=== PATIENT | male | born 1980 | race Caucasian/White ===

== ENCOUNTER 2021-11-10 23:32 | Emergency (ER) | payer OTHER, SELFPAY ==
[2021-11-10 23:35] VITALS: BP 172/106; PULSE 58; RESP 16; TEMP 36.5; O2SAT 98; BMI 32.5
--- NOTE | 2021-11-10 23:52 | EDS_ITS ---
HPI History of Present Illness Chief Complaint: Abscess Informant: patient Onset/Context/Timing Onset: Days Context: Gradual Onset Timing: Continuous Current Severity: Mild Maximum Severity: Mild Narrative Narrative: 41-year-old male no sniffing past medical history. Has a abscess on his right posterior neck. This developed over the last week. He saw his primary care physician last week and started him on Bactrim but it has only gotten worse. He also has appointment to be seen by general surgeon in the next week or so to have this drained. He denies any fever chills or any constitutional symptoms. No prior history. Prior similar symptoms: No Recent Illness/Hospitalization: No PFSH PFSH Medical History no medical history no medical history Allergy/AdvReac Type Severity Reaction Status Date / Time No Known Allergies Allergy Verified 11/10/21 23:36 ROS ROS ED ROS Narrative Denies recent illness. Review of Systems ROS Unobtainable: Denies due to encephalopathy Constitutional Constitutional ED: Denies chills or fever(s) Eyes Eyes: Denies change in vision ENT ENT ED: Denies ear pain Cardiovascular Cardiovascular: Denies chest pain Respiratory/Chest Respiratory/Chest: Denies dyspnea Gastrointestinal Gastrointestinal: Denies abdominal pain, diarrhea, nausea or vomiting Genitourinary Genitourinary ED: Denies dysuria Musculoskeletal Musculoskeletal: Denies myalgias Integumentary Reports abscess; Denies rash Neurologic Neurologic: Denies headache(s) Psychiatric Psychiatric: Denies depression Endocrine Endocrinology: Denies polyuria Allergic/Immunologic Allergic/Immunologic ED: Denies urticaria EXAM Physical Exam Narrative Exam Narrative: 41-year-old male no acute distress. H EENT exam unremarkable. Neck he has a half dollar sized abscess on his right posterior lateral neck. This needs drain. It is fluctuant. Is tender. It is red. Lungs are clear. Heart regular rate and rhythm no murmur. Otherwise exam unremarkable. Const Vital Signs: 11/10/21 23:35 Temperature 97.7 F L Temperature Source Oral Pulse Rate 58 L Respiratory Rate 16 Blood Pressure 172/106 H Blood Pressure Mean 128 Pulse Ox 98 Oxygen Delivery Method Room Air Positive well nourished and well developed; Negative for obese, cachectic, contractures or unkempt General Appearance ED: well developed and NAD; Negative for unkempt, cachectic, contractures, cyanotic, diaphoretic or pallor Nutritional Appearance: Negative for cachectic or obese HEENT Reports moist mucous membranes Negative for trauma or tenderness Eyes PERRL and EOMs intact bilaterally Neck no lymphadenopathy, supple and no JVD Neck Narrative: Right neck posterior abscess about the size of a half dollar. Fluctuant, red and tender. Will need drain. General: tenderness Chest Wall inspection of chest normal and palpation of chest normal Resp normal respiratory effort and clear to auscultation bilaterally Auscultation: Negative for rales, rhonchi or wheezes Cardio regular rate, regular rhythm, S1 normal heart sound, S2 normal heart sound and no murmurs GI normal to inspection, nondistended, normoactive bowel sounds, non-tender, non- distended and no masses Inspection: Negative for abdominal distention Auscultation: normoactive bowel sounds; Negative for hyperactive bowel sounds Palpation: soft; Negative for tender, guarding or rebound tenderness present Back/Spine no CVA tenderness General Back: Negative for CVA tenderness Cervical Spine: Negative for cervical spine tenderness Thoracic Spine / Upper Back: Negative for thoracic spinal tenderness Extremity normal to inspection General Extremety ED: Negative for edema or tenderness General Extremity: Negative for edema Neuro oriented x3 Sensorium / Orientation: alert; Negative for orientation impaired, lethargic or stuporous Motor Exam: strength 5/5 throughout Psych mental status grossly normal Appearance: Negative for unkempt Mood & Affect: Negative for depressed Skin no rashes or lesions noted and no wounds Skin Narrative: Right posterior neck abscess. General Skin Exam: Negative for jaundice or pallor MDM MDM MDM Narrative Medical decision making narrative: Patient has a abscess on her right posterior neck. This will need to be drained. Let will be applied. Then I will locally anesthetize it and drain it. He is already on antibiotics. I indeed the right neck abscess. Patient did well. Drained about 3 to 5 cc of pus and blood. Packing placed and he will be discharged home. Procedures Other Procedures Procedure(s): Right neck abscess incision and drainage. Let to the wound. Local lidocaine. Made about a 1 inch horizontal incision. Drained about 3 to 5 cc of pus and blood. Patient tolerated well. Irrigated. Broke up loculations by probing. Placed about 4 inches of 1 inch gauze. Patient was instructed on wound care. And follow-up. Discharge Plan Triage Chief Complaint: Abscess ED Provider: Avelino Ramos Dx/Rx/DC Orders Clinical Impression: Abscess of neck Instructions: ED Abscess Incision And Drainage Referrals: [facility] Doctor,Out of [NON-STAFF] - Activity Restrictions/Additional Instructions: Warm compresses to the area. Motrin and Tylenol for pain. Follow-up with the surgical appointment you have to discuss formal resection if necessary. Pull packing out in 4 days either Monday night or Monday morning. Return if fever, a lot worse swelling or a lot worse surrounding redness. This should progressively improve. Finish your current antibiotic. Disposition Disposition: Home, Self Care
[2021-11-11] MEDS: Lidocaine 1% (20 ml mdv) 20 ML Vial 5 ML INFILT (00:34)
[2021-11-11] MEDS: Lidocaine/Epi/Tetracaine 50 ML 1 APPLIC TOPICAL (00:34)
[2021-11-11 01:09] VITALS: PULSE 60; RESP 16; O2SAT 98
== END 2021-11-11 01:11 | disposition home or self-care (01) ==
LOC: ED 11-11 00:08
PROVIDERS: Emergency Provider Emergency Medicine; Visit Provider Emergency Medicine
DX: L02.11 Cutaneous abscess of neck (principal)
CPT/HCPCS: 10060; 99282

== ENCOUNTER 2024-03-10 12:29 | Emergency (ER) | payer OTHER, SELFPAY ==
[2024-03-10 12:30] VITALS: BP 160/108; PULSE 65; RESP 18; TEMP 36.8; O2SAT 98; BMI 32.8
--- NOTE | 2024-03-10 13:21 | EX.ED.GENINJ ---
HPI History of Present Illness Chief Complaint: Other, Pain/Inj PFSH PFSH Medical History no medical history Home Medications ?Medication ?Instructions ?Recorded ?Last Taken ?Type NK 03/10/24 Unknown History Allergy/AdvReac Type Severity Reaction Status Date / Time No Known Allergies Allergy Verified 03/10/24 12:30 Family History (Updated 03/10/24 @ 12:37 by Chato Lo) Other Cancer Pacemaker Surgical History no surgical history Social History Smoking Status: Never smoker EXAM Physical Exam Const Vital Signs: 03/10/24 12:30 Temperature 98.3 F Temperature Source Temporal Pulse Rate 65 Respiratory Rate 18 Blood Pressure 160/108 H Blood Pressure Mean 125 Pulse Ox 98 Oxygen Delivery Method Room Air MDM MDM MDM Narrative Medical decision making narrative: HISTORY OF PRESENT ILLNESS: 43-year-old male presents with concern for fluid collected under the skin of his left outer thigh he states 2 weeks ago he had an injury to the left inner thigh and noticed this fluid collection. Denies any unilateral leg swelling. Denies any chest pain or shortness of breath. Patient denies active cancer, being bedridden for greater than 3 days, denies unilateral leg swelling, denies any varicose veins, denies any calf tenderness, denies tenderness along deep venous system. Denies major surgery within 12 weeks, recent paralysis, previous DVT. Denies any overlying redness, fever, pain. REVIEW OF SYSTEMS: Pertinent positives: Fluid on left leg Pertinent negatives: As per HPI PHYSICAL EXAM: Nursing triage notes reviewed, Vital signs reviewed Constitutional: please see mdm Lungs: Clear to auscultation, No wheezing or rales. No increased work of breathing, no conversational dyspnea, no accessory muscle use, no nasal flaring. No respiratory distress noted Heart: Regular rate and rhythm, No murmurs, No rubs and No gallops, 2+ distal pulses (radial, femoral, posterior tibial) in all extremities Extremities: No edema, there is a focal area of fluctuance to the left lateral thigh, is not painful and is not warm it is not indurated, clinically consistent with a seroma. Neuro: Intact sensation L1-S1 dermatomal distributions. Intact 5/5 strength in hip flexion (T12-L3). Knee extension (L2-L4). Ankle dorsiflexion (L4-L5). Ankle plantar flexion (S1). Great toe extension (L5). 2+ patellar and Achilles DTRs. Skin: No rash or lesions noted MEDICAL DECISION MAKING: Chief Complaint: Left thigh External records reviewed: No recent ED visits or hospitalizations Factors affecting care: none Social determinants of health: none History obtained from others: none Consults: none MDM Narrative: Patient was initially hypertensive blood pressure of 160/108, otherwise afebrile nontoxic-appearing. I considered the following differential diagnosis: Abscess, cellulitis, lipoma, hematoma, seroma I obtained a POCUS ultrasound which showed no evidence of cobblestoning, cellulitis, abscess or Doppler flow to suggest vascularity I suspect this is a posttraumatic seroma. This should resolve on its own. The patient and/or family, caregivers express understanding. The patient and/or family, caregivers agrees with the plan. Shared decision making: I will have a discussion with the patient and or visitors regarding risk/benefits of further testing or admission. They will be made aware of of the risk/benefits inherent in this decision they will be given the opportunity to voice understanding. Total critical care time today provided was at least 0 minutes. This excludes separately billable procedures. Critical care time (if documented) is secondary to the patient having high probability of clinically significant/life threatening deterioration in the patient's condition which required my urgent intervention. Impression: 1. Thigh pain 2. Thigh seroma Dispo: discharge This note was generated with [employer] dictation software. It may contain incorrect words, spelling, and punctuation that were not noted in review of the chart prior to signing. Discharge Plan Triage Chief Complaint: Other, Pain/Inj ED Provider: Shan Li Dx/Rx/DC Orders Instructions: ED Seroma, Postsurgical Prescriptions: No Action NK Primary Care Provider: MONICA HWANG Referrals: MONICA HWANG [Other] Activity Restrictions/Additional Instructions: Thank you for trusting us with your care today! Your thigh concern is likely secondary to a posttraumatic seroma. Attached are instructions for postoperative or postsurgical seroma. I am aware that he did not have recent surgery however the pathophysiology is very similar. Please take Tylenol (2 pills, 650 mg), ibuprofen (2 pills, 400 mg) every 6 hours as needed for pain and fever control. Please employ compression devices as tolerated. Please try to be more active specifically doing exercises of your lower extremity to encourage fluid reabsorption Please return to the emergency department if your symptoms change or worsen. Specifically develop unilateral leg swelling, chest pain, shortness of breath, if you lose consciousness. You develop fever, increasing pain or redness over the site Please follow with your primary care physician for further outpatient evaluation and management. Print Language: Tongan Disposition Disposition: Home, Self Care
[2024-03-10 14:08] VITALS: BP 152/98; PULSE 58; RESP 16; TEMP 36; O2SAT 96
== END 2024-03-10 14:09 | disposition home or self-care (01) ==
LOC: ED 14:01
PROVIDERS: Emergency Provider Emergency Medicine; Visit Provider Emergency Medicine
DX: S70.12XA Contusion of left thigh, initial encounter (principal); X58.XXXA Exposure to other specified factors, initial encounter
CPT/HCPCS: 99283